=== PATIENT | male | born 1960 | race Caucasian/White ===

== ENCOUNTER 2021-08-21 15:16 | Inpatient (IN) | payer OTHER, BC ==
[~2021-08-21] VITALS: Ht 172.7 cm; Wt 96.6 kg
[2021-08-21 15:18] VITALS: BP 124/65
[2021-08-21 15:45] LABS: ABSOLUTE NEUTROPHILS 6.9 thou/uL (1.4-8.2); BASOPHILS 1.2 % (0.0-2.0); EOSINOPHILS 1.1 % (0.0-3.0); HEMATOCRIT 33.6 % (42.0-52.0); HEMOGLOBIN 11.5 gm/dL (14.0-18.0); LYMPHOCYTES 12.9 % (24.0-44.0); MCH 32.5 pg (26.0-34.0); MCHC 34.3 g/dL (28.0-37.0); MCV 94.9 fL (80.0-100.0); MONOCYTES 8.3 % (1.0-8.0); PLATELET COUNT 173 thou/uL (150-400); POLYS 76.5 % (36.0-66.0); RBC 3.54 mil/uL (4.50-6.00); RDW 12.8 % (10.5-14.5)
[2021-08-21 15:50] LABS: CALCIUM 9.6 mg/dL (8.5-10.1); CREATININE 1.1 mg/dL (0.7-1.3); POTASSIUM 4.1 mmol/L (3.5-5.1)
[2021-08-21] MEDS ORDERED: ROXICODONE5 MG PO (15:53)
[2021-08-21] MEDS ORDERED: FLEXERIL PO (15:54)
[2021-08-21] MEDS ORDERED: AMBIEN 5 MG TABL5 M1 PO (15:55)
[2021-08-21] MEDS ORDERED: FAMOTIDINE40 MG PO (15:55)
[2021-08-21 15:56] LABS: PROTIME 10.9 Seconds (10.5-12.1)
[2021-08-21] MEDS ORDERED: SINGULAIR 10 MG10 M1 PO (15:56)
[2021-08-21] MEDS ORDERED: MORPHINE SULFAT30 M1 PO (15:56)
[2021-08-21] MEDS ORDERED: NEURONTIN 300M300 M2 PO (15:56)
[2021-08-21] MEDS ORDERED: M-DRYL12.5 MG/5 PO (15:56)
[2021-08-21] MEDS ORDERED: MS CONTIN 60 MG60 M1 PO (15:57)
[2021-08-21] MEDS ORDERED: PROTONIX40 M2 PO (15:57)
[2021-08-21] MEDS ORDERED: NOVOLIN N100 UNIT/1 SUBQ (15:58)
[2021-08-21] MEDS ORDERED: TRIAMCINOLONE A80 G2 TOP (15:59)
[2021-08-21] MEDS ORDERED: ROSUVASTATIN CA20 MG PO (15:59)
[2021-08-21] MEDS ORDERED: NOVOLOG100 UNIT/1 SUBQ (16:00)
[2021-08-21] MEDS ORDERED: FENOFIBRATE160 MG PO (16:00)
[2021-08-21] MEDS ORDERED: CLOPIDOGREL75 MG PO (16:00)
[2021-08-21] MEDS ORDERED: TAMSULOSIN HCL0.4 MG PO (16:00)
[2021-08-21] MEDS ORDERED: FUROSEMIDE 40 M40 M1 PO (16:01)
[2021-08-21] MEDS ORDERED: FLUOXETINE HCL60 MG PO (16:01)
[2021-08-21] MEDS ORDERED: FORTEO750 MCG/3 (16:02)
--- NOTE | 2021-08-21 16:13 | EKG ---
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1960 Requested By: Tra Tolentino Order Number: [id number] MD: Darrian Kennedy Measurements Intervals Peerless Rate: 95 P: 20 CA: 185 QRS: -10 QRSD: 87 T: 59 QT: 351 QTc: 442 Interpretive Statements Sinus rhythm Atrial premature complexes Abnormal R-wave progression, early transition No previous ECG available for comparison Electronically Signed On 08-21-2021 16:13:01 BRICK PICKER by Darrian Kennedy [email or web address] <ELECTRONICALLY SIGNED> By: Darrian Kennedy MD, [facility] 08/21/21 1613 1545 1545 Darrian Kennedy MD, FACC /EPI
--- NOTE | 2021-08-21 16:51 | NUR ---
PT BACK FROM CT SCAN.
--- NOTE | 2021-08-21 20:09 | NUR ---
RECIEVED REPORT FROM RN, ROUNDED ON PT AND INTORDUCED SELF, PT DENIES ANY NEEDS AT THIS TIME.
--- NOTE | 2021-08-21 23:18 | NUR ---
REPORT CALLED TO Jame, MADDY TO RN.
[2021-08-21 23:19] VITALS: BP 130/59
--- NOTE | 2021-08-22 01:28 | NUR ---
PT ADMITTED TO THE UNIT AT 2345. PT IS A/O X4 AND IS UP WITH SBA USING WALKER AND GB. PT IS A/O X4 AND IS ON ROOM AIR. VSS. AFEBRILE. MEDICATION GIVEN PER MAR. ADMISSION IS COMPLETED. PT HAS BEEN EDUCATED ON USE OF CALL LIGHT AND BED CONTROLS. FALL PRECAUTIONS IN PLACE, CALL LIGHT IS WITHIN REACH.
[2021-08-22 03:43] LABS: CALCIUM 8.3 mg/dL (8.5-10.1); CREATININE 0.9 mg/dL (0.7-1.3)
[2021-08-22 03:47] LABS: ALBUMIN 2.6 g/dL (3.4-5.0); PHOSPHORUS 3.6 mg/dL (2.5-4.9)
[2021-08-22 07:12] LABS: GLYCOHEMOGLOBIN (HGB A1C) 8.9 % (4.8-5.6)
[2021-08-22 08:31] VITALS: BP 101/64
--- NOTE | 2021-08-22 10:08 | HC ---
[facility] [place] [address] CONSULTATION Name: EMILIANO ROCHA Room #: 443-P ADM IN M.R.#: [id number] Admission: 08/21/21 Attend Phys: Duncan Salmon Discharge: Date of : 56 Report #: [id number] THIS REPORT FOR: cc: Lou Banerjee MD, Mohd I. MD Jameson, Stephanie L. DPM ~ DATE OF SERVICE: 08/22/2021 HISTORY OF PRESENT ILLNESS: The patient is a 60-year-old diabetic male who was admitted through the ER yesterday from my podiatry clinic for significant bilateral lower extremity swelling and cellulitis. The patient does state he fell four days ago, but denies hitting his head or loss of consciousness. The patient currently is denying fevers and chills. He was seen at bedside this morning and feels his legs have already improved with some antibiotics. The patient is also on narcotics for chronic lower back pain. He does state that he is insulin controlled with diabetes. The patient does admit to history of having a stent in his leg. The patient admits to having issues through the years with intermittent large amounts of swelling to his legs with needing admission, but it has been some time. LOWER EXTREMITY PHYSICAL EXAMINATION: There is significant pitting edema in legs are taut with hyperpigmentation and brawny appearance to bilateral lower extremities along the entire shins with 3+ pitting edema and worse on the left extending into the ankle and the foot more than on the left. There is no obviously open portal sites to the legs or the feet. There is a history of a left hallux partial amputation. All other toenails are dystrophic, thickened, mycotic but without any open wounds. There is no focal pain on palpation of bilateral lower extremities, but there is diffuse tenderness throughout. Pedal pulses are difficult to palpate with amount of edema, but CFT is less than 3 seconds to all present toes. There is a decrease in overall protective sensation bilateral lower extremities. Feet overall 90-degree plantar grade position. ASSESSMENT AND PLAN: A 60-year-old diabetic male who was admitted yesterday evening from the ER for bilateral lower extremity cellulitis. He is currently afebrile. No leukocytosis. Pending blood cultures. Recommend Infectious Disease on board for further antibiotic recs. The patient had a lower extremity venous duplex, which was negative. The patient does admit to history of an arterial stent. Recommend arterial duplex bilateral order at this time and this was ordered. In addition, after ruling out other causes and cardiac workup, recommend compression therapy. A consult was placed for wound care for further recs by them. In regards to the foot and ankle aspect, there is no focal pain. Recommend obtaining bilateral foot and ankle x-rays due to fall to rule out any fractures. The patient without any focal complaints to foot or ankle at this time to this area. Strong recommendations to the patient, recommending rest and elevation. His [address] [address] CONSULTATION Name: EMILIANO ROCHA DELFINA Room #: 443-P ADM IN M.R.#: [id number] Admission: 08/21/21 Attend Phys: Duncan Salmon Discharge: Date of : 56 Report #: [id number] toenails are mycotic but without any breaks in skin to foot, ankle or legs and are well trimmed at this time. Thank you for this consult <ELECTRONICALLY SIGNED> By: Ann Josue DPM 08/22/21 1008 0640 0830 Ann Josue DPM /manuel
[2021-08-22 15:44] VITALS: BP 105/62
--- NOTE | 2021-08-22 18:08 | NUR ---
Patient up independently with walker; steady gait. Cellulitis to BLE and +1 edema. Patient seen by ID provider & wound care provider. New wound care orders. Patient has chronic pain & voices pain at 5/10 and up. Patient also states he takes Morphine controlled release 30mg Q4 on top of the 60mg Q12. Patient was very concerned about getting that order. SOA voiced; sats at 96% on RA. o2 at 0.5 for comfort PRN. breathing tx ordered. Patient has poor appetite, refusing most meals this day. Voices no further concerns.
[2021-08-22 20:15] VITALS: BP 133/55
[2021-08-23 02:30] VITALS: BP 106/50
--- NOTE | 2021-08-23 05:17 | NUR ---
PATIENT C/O SOA CALLED RT PRN BREATHING TREATMENT GIVEN. CALLED ERRAND RUNNER NEW ORDER OF STAT CHEST X RAY. PATIENT REQUESTED FOR AMBIEN CALLED ERRAND RUNNER NO ODER D/T PATIENT HAVING BREATHING PROMBLEMS.PAIN CONTROLLED. PATIENT UP AT [facility]. PATIENT TRANSFERED TO W REPORT GIVEN.
--- NOTE | 2021-08-23 05:43 | NUR ---
PT TRANSFERED FROM OVERNIGHT. PT UAL IN THE ROOM. HE IS MODERATELY AGITATED OVER HOME MEDICATION DISCREPENCIES. EDUCATION PROVIDED- PT REPORTS HE WILL FOLLOW UP WITH HIS PROVIDER TODAY. PT RESTING ON SIDE OF THE BED, ASLEEP DURING O500 ROUNDING- THIS RN REQUESTED HE LAY BACK IN BED, PT STATED HE WASNT ASLEEP AND WOULDNT BE SLEEPING ANYTIME SOON. PAIN MEDS PROVIDED PER ORDERS. NO OUTWARD SIGNS OF PAIN ALTHROUGH PT STATES HIS PAIN IS A 7/10
[2021-08-23 07:31] VITALS: BP 97/54
--- NOTE | 2021-08-23 11:49 | HC ---
[facility] [place] [address] CONSULTATION Name: EMILIANO ROCHA Room #: 454-P ADM IN M.R.#: [id number] Admission: 08/21/21 Attend Phys: Duncan Salmon Discharge: Date of : 56 Report #: [id number] THIS REPORT FOR: cc: Lou Banerjee MD, Mohd I. MD Barry, Joseph W. MD ~ DATE OF SERVICE: 08/22/2021 INFECTIOUS DISEASE CONSULTATION ATTENDING PHYSICIAN: Dr. Salmon. REASON FOR EVALUATION: Bilateral lower extremity inflammatory eruptions, likely multifactorial, component of skin and soft tissue on the left. HISTORY OF PRESENT ILLNESS: Chart reviewed. The patient examined. This is a 60-year-old gentleman with known diabetes mellitus that apparently is not well controlled based on hemoglobin A1c of 8.9, who has had ongoing issues with lower extremity edema. He notes he has had previous history of, describes as, cellulitis of his lower extremities. He was evaluated as an outpatient. It was felt to be exacerbation of the situation due to increasing pain. Did admit some chills. Denies any evidence of fevers. Appetite has been satisfactory. He had a fall in the bathroom, does have some pain associated with that, attributed to his left shoulder. At this point, it is very difficult to bear weight or walk. He was evaluated in the Emergency Room. Coronavirus testing was negative. His blood sugar was elevated at 427 and a somewhat artificially depressed sodium of 131. Lactic acid was 1.9. Bilateral lower extremity venous Dopplers showed no evidence of DVT. Chest x-ray showed no acute process. Blood cultures collected at the time of admission are sterile thus far. Imaging of the foot and ankle notes no evidence of bony changes that would favor infection or no evidence of arthritis. He was empirically started on cefepime and vancomycin. He was continued with clindamycin. At this point, he is not overtly toxic. ALLERGIES: NONSTEROIDALS. CURRENT MEDICATIONS: Include ____ albuterol inhaler, clopidogrel, tamsulosin, clindamycin, insulin glargine, insulin lispro, furosemide, cyclobenzaprine, enoxaparin, oxycodone as needed. PAST MEDICAL HISTORY: As described above, diabetes mellitus, bilateral lower extremity venous stasis insufficiency with chronic dermatitis, also reflux, chronic pain syndrome, hyperlipidemia, depression. SOCIAL HISTORY: No illicit drug use. Smokes cigarettes. No ethanol. FAMILY HISTORY: Noncontributory. [facility] [address] [place] [address] CONSULTATION Name: EMILIANO ROCHA Room #: 454-P [facility] IN [facility].#: [id number] Admission: 08/21/21 Attend Phys: Duncan Salmon Discharge: Date of : 56 Report #: [id number] REVIEW OF SYSTEMS: Otherwise above, denies significant GI related complaints. No pulmonary complaints. PHYSICAL EXAMINATION: GENERAL: He is pleasant, alert, cooperative, some moderate distress. He is lucid, somewhat chronically ill appearing. VITAL SIGNS: Temperature 98.1, pulse 90, respirations 18, blood pressure 101/64. SKIN: Warm, dry, no rashes. HEENT: Normocephalic. Extraocular muscles intact. NECK: Supple. LUNGS: Diminished breath sounds. Few scattered crackles at the bases. HEART: Regular. I do not appreciate a murmur. ABDOMEN: Mildly distended, obese, somewhat firm, nontender. EXTREMITIES: Bilateral lower extremities have chronic dermopathy that is really consistent with chronic venous stasis insufficiency and dermatitis. There is some asymmetry with more evident swelling on the left. It is palpably tender, again left greater than right. There are no bullous lesions, no ulcers. Diminished palpable pulses. GENITOURINARY AND RECTAL: Deferred. LABORATORY DATA: Blood cultures sterile thus far. Electrolytes: Sodium 136, potassium 4.0, chloride 90, bicarbonate is 29, anion gap of 8, BUN and creatinine 12 and 0.9, glucose of 165, albumin 2.6, estimated GFR of 86. ProBNP of 182. Chest x-ray without acute process. CBC: White count 9.0, H and H 9.5 and 33.6, platelets of 173. ASSESSMENT AND PLAN: Bilateral lower extremity inflammatory eruption, likely multifactorial, which is chronic and may be acute component, especially noted on the left with skin and soft tissue infection and cellulitis. At this point, there is no focal area which is abscessed that is appreciated, both lesion or ulcer. We will continue empiric therapy with clindamycin. He notes he has historically used compression and elevation. We will reinstitute that as able. At this point, it may be too painful. We will do some additional testing to see if we can further clarify things, arterial Doppler screening for MRSA. At this point, he is not overtly toxic. Continue to monitor expectantly. <ELECTRONICALLY SIGNED> By: Sebastien Farfan MD 08/23/21 1149 1430 0135 Sebastien Farfan MD /nt
--- NOTE | 2021-08-23 13:37 | NUR ---
CM INTRODUCTED SELF TO PT. PT REPORTS LIVING IN A HOUSE WITH HIS BROTHER, 4 STEPS TO ENTER 0 STEPS INSIDE. PT USES A 4WW. PT BROGHT 4WW WITH HIM TO THE HOSPITAL - IN HIS ROOM. PT INDICATES UPON DC RETURNING HOME. STATED HE WANTS TO BE HOME BY THE OF THIS MONTH. CM ASKED IF PT WOULD BE RECEPTIVE TO HH IF IT WAS ORDER AT DC. PT IS AGREEABLE AND RECEPTIVE TO HH - INDICATED [facility] HIS PREFERRED PROVIDER. PCP CONFIRMED MOHD. MINE CASTELLON. PT DID NOT EXPRESS ANY QUESTIONS OR CONCERNS TO CM AT THIS TIME.
--- NOTE | 2021-08-23 15:05 | NUR ---
1430 DR. YANCEY PAGED; 1450 RETURNED PAGE, PT WOULD LIKE TO SPEAK WITH DR ABOUT PAIN MEDICATION MANAGEMENT; . STATED THAT HE WOULD COME AND SPEAK WITH PATIENT. PATIENT NOTIFIED THAT PROVIDER WILL BE IN TO SPEAK WITH HIM SOON HE CAN. PT OK WITH RESPONSE.
--- NOTE | 2021-08-23 15:37 | HC ---
[facility] [place] [address] CONSULTATION Name: EMILIANO ROCHA Room #: 454-P ADM IN M.R.#: [id number] Admission: 08/21/21 Attend Phys: Duncan Salmon Discharge: Date of : 56 Report #: [id number] THIS REPORT FOR: cc: Lou Banerjee MD, Mohd I. MD Althoff, Jeffrey R. MD ~ DATE OF SERVICE: 08/22/2021 CHIEF COMPLAINT: Bilateral lower extremity cellulitis with lymphedema. 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 Josue in the office. He apparently had fallen at home, but denies hitting his head and has had no loss of consciousness. He is having increasing pain, swelling and is admitted for antibiotics and wound care and I have been asked to see him in this regard. PAST MEDICAL HISTORY: Positive for type 2 diabetes mellitus; lymphedema, bilateral lower extremities; hypertension; chronic low back pain and benign prostatic hypertrophy. MEDICATIONS: Includes oxycodone, cyclobenzaprine, zolpidem, famotidine, diphenhydramine, Singulair, Neurontin, morphine, pantoprazole, NPH, Aristocort, rosuvastatin, tamsulosin, fenofibrate, clopidogrel, Lasix and Forteo. ALLERGIES: NONSTEROIDAL ANTI-INFLAMMATORY. SOCIAL HISTORY: The patient admits to smoking cigarettes, 5-6 cigarettes per day over the last 45 years. No alcohol use. FAMILY HISTORY: Positive for diabetes and hypertension. REVIEW OF SYSTEMS: CONSTITUTIONAL: The patient denies fever, chills or weight loss. NEUROLOGICAL: The patient denies focal weakness, some tingling. He has fallen at home. He has had no loss of consciousness. EYES: The patient denies visual changes, redness or drainage. ENT: The patient denies earache, nasal drainage or throat. CARDIOVASCULAR: The patient denies chest pain, palpitations and diaphoresis. PULMONARY: Denies cough, shortness of breath. GASTROINTESTINAL: Denies nausea, vomiting, diarrhea or abdominal pain. ORTHOPEDIC: The patient does have pain and swelling of bilateral lower extremities, pain only when touched. No open ulcerations. Others systems in a 14-point review of systems are negative. PHYSICAL EXAMINATION: [facility] [address] [place] [address] CONSULTATION Name: EMILIANO ROCHA Room #: 454-P [facility] IN [facility]#: [id number] Admission: 08/21/21 Attend Phys: Duncan Salmon Discharge: Date of : 56 Report #: [id number] VITAL SIGNS: The patient's vital signs at this time include temperature 36.7, pulse 90, respiratory rate 18, blood pressure 101/64. GENERAL: This is a chronically ill-appearing male patient who appears to be in minimal distress. HEENT: Head normocephalic. Nose and throat are clear. NECK: Supple. LUNGS: Clear. HEART: Regular rhythm. ABDOMEN: Soft, nontender. EXTREMITIES: Lower extremities demonstrate slightly difficult to palpate pulses, but feet are pink, warm, and dry and there are no open ulcerations to the feet. There is moderate erythema consistent with cellulitis to bilateral lower legs, 3+ edema is noted. No open ulcerations. NEUROLOGIC: The patient is alert, does move all 4 extremities spontaneously. LABORATORY STUDIES: Include sodium 136, potassium 4.0, chloride 99, CO2 of 29, BUN 12, creatinine 0.9, glucose 165, albumin is 2.6. White blood cell count is 9.0 with a hemoglobin of 11.5. CLINICAL IMPRESSION: 1. Cellulitis, bilateral lower extremities. 2. Lymphedema, bilateral lower extremities. 3. Type 2 diabetes mellitus. 4. Hypertension. 5. Chronic low back pain. 6. History of benign prostatic hypertrophy. RECOMMENDATIONS: At this point in time, we will recommend IV antibiotics as have been started. There are no open ulcerations to culture, so empiric therapy is appropriate. I think the cellulitis may be too significant presently for any sort of aggressive compression. We will recommend topical AmLactin lotion to the skin and elevating the legs for edema control. Once the cellulitis begins to subside more, we can add compression for edema control. Continue with medications to manage his underlying medical issues and aggressive nutritional support. I appreciate being asked to see him in consultation. <ELECTRONICALLY SIGNED> By: South Smith MD 08/23/21 1537 0953 [id number] South Smith MD /nt
[2021-08-23 16:26] VITALS: BP 112/59
[2021-08-23 19:17] VITALS: BP 118/64
[2021-08-24 02:47] VITALS: BP 125/66
--- NOTE | 2021-08-24 05:44 | NUR ---
Pt. rested quietly at intervals during the night when checked on during frequent rounds. He was given po pain meds for c/o generalized pain (see emar) with some relief noted. He c/o insomnia and Allison WIRE STRIPPING MACHINE OPERATOR called and new order for ambien given. Ambien given (see emar) and pt. slept well.
[2021-08-24 15:14] VITALS: BP 105/66
[2021-08-24 15:44] VITALS: BP 105/66
--- NOTE | 2021-08-24 15:59 | NUR ---
CARE TEAM INDICATED THAT PT WILL LIKELY BE MEDICALLY STABLE TO DC HOME TOMORRWO Friday08/25/21. [facility] IS ACCEPTING FOR SERVICES UPON DC. FAX ORDERS TO CALL . PT HAS ALL NEEDED DME. NO OTHER CM INTERVENTION INDICATED.
[2021-08-24 19:04] VITALS: BP 105/57
--- NOTE | 2021-08-25 04:25 | NUR ---
Pt. rested quietly during the night when checked on during frequent rounds. He c/o anxiety earlier during the shift and wanted a xanax. Allison LIU called and order received (see cpoe). He also refused some of his insulin (see emar). Medicated for c/o generalized pain (see emar) with some relief noted. Pt. refuses to have his bed alarm on. He became angry when I tried to set it.
[2021-08-25 07:40] VITALS: BP 108/64
[2021-08-25] MEDS ORDERED: LEVOFLOXACIN500 MG PO (09:32)
[2021-08-25] MEDS ORDERED: HUMALOG100 UNIT/1 SUBQ (09:33)
[2021-08-25] MEDS ORDERED: NOVOLIN N100 UNIT/1 SUBQ (09:34)
--- NOTE | 2021-08-25 10:14 | NUR ---
PT DISCHARGING TODAY TO HOME WITH [facility] FAXED DC ORDERS/SUMMARY RECEIVED CONFIRMATION AND THEY WILL ARRANGE VISITS WITH PT.
--- NOTE | 2021-08-25 11:36 | NUR ---
ASSUMED CARE OF PT AT 0700. PT RESTING COMFORTABLY. REQUESTED XANAX AND EARLY DISCHARGE ORDER. DR YANCEY NOTIFED. GIVEN XANAX, REWRAPPED PT LOWER EXTREMITY DRESSINGS AND GIVEN DISCHARGE PAPERWORK. PT RECIEVED MORNING MEDS PRESCRIBED. ALL VITAL SIGNS WNL. NO FURTHER MONITORING REQUIRED.
[2021-08-25 11:50] VITALS: BP 108/64
--- NOTE | 2021-08-25 11:52 | NUR ---
PERIPHERAL IV TAKEN OUT BEFORE DISCHARGE
== END 2021-08-25 12:14 | disposition home health service (06) | DRG 602 ==
LOC: ER 15:16 → EROBS 18:21 → 4S 18:21 → 4W 08-23 02:44
PROVIDERS: Student in an Organized Health Care Education/Training Program; ADMIT Hospitalist; ATTEND Hospitalist
DX: L03.116 Cellulitis of left lower limb (principal); E43 Unspecified severe protein-calorie malnutrition; J96.90 Respiratory failure, unspecified, unspecified whether with hypoxia or hypercapnia; J18.9 Pneumonia, unspecified organism; L03.115 Cellulitis of right lower limb; E11.9 Type 2 diabetes mellitus without complications; Z20.822 Contact with and (suspected) exposure to COVID-19; I89.0 Lymphedema, not elsewhere classified; F17.210 Nicotine dependence, cigarettes, uncomplicated; M54.50 Low back pain, unspecified; N40.0 Benign prostatic hyperplasia without lower urinary tract symptoms; G89.29 Other chronic pain; K21.9 Gastro-esophageal reflux disease without esophagitis; F32.9 Major depressive disorder, single episode, unspecified; E78.5 Hyperlipidemia, unspecified; R53.81 Other malaise; B35.1 Tinea unguium; I87.2 Venous insufficiency (chronic) (peripheral); L30.9 Dermatitis, unspecified; Z88.8 Allergy status to other drugs, medicaments and biological substances; Z83.3 Family history of diabetes mellitus; Z82.49 Family history of ischemic heart disease and other diseases of the circulatory system; Z79.899 Other long term (current) drug therapy; Z68.32 Body mass index [BMI] 32.0-32.9, adult
CPT/HCPCS: 10040; 10195